=== PATIENT | male | born 1930 | race Caucasian/White ===

== ENCOUNTER 2017-01-12 08:29 | Day surgery (SDC) | payer OTHER ==
[~2017-01-12] VITALS: Ht 172.7 cm; Wt 85.5 kg
[~2017-01-12 08:29] MED LIST: ACET-66 PO; ALBU2.5V2 NEB; ALLO100T PO; CARV6 PO; CILO2.5OS OD; CITA20TA9 PO; CLONIDINE PATCH TD; DIGO125T PO; DIVA250T25 PO; DOXA2TAB PO; FLUT16H NASAL; FURO40 PO; KDUR20 PO; LATA2.5D2 OU; LEVO50 PO; LISI-661 PO; PSYL1POW PO; SARN225L TP; VITAD50000 PO
[2017-01-12] MEDS ORDERED: RINGERS SOLUTION,LACTATED 500 ML IV ONE ×2 (09:00→10:02)
[2017-01-12] MEDS ORDERED: MOXIFLOXACIN HCL 0.5% 3 ML OPHTHALMIC SOLUTION OD ONE (09:00)
[2017-01-12] MEDS ORDERED: DICLOFENAC SODIUM 0.1% 2.5 ML OPHTHALMIC SOLUTION OD ONE (09:00)
[2017-01-12] MEDS ORDERED: DICLOFENAC SODIUM 0.1% 2.5 ML OPHTHALMIC SOLUTION ONE (10:01)
[2017-01-12] MEDS ORDERED: MOXIFLOXACIN HCL 0.5% 3 ML OPHTHALMIC SOLUTION ONE (10:01)
[2017-01-12] MEDS ORDERED: TROPICAMIDE 1% 2 ML OPHTHALMIC SOLUTION ONE (10:01)
[2017-01-12] MEDS ORDERED: PHENYLEPHRINE HCL 2.5% 2 ML OPHTHALMIC SOLUTION ONE (10:02)
[2017-01-12] MEDS: TROPICAMIDE 1% 2 ML OPHTHALMIC SOLUTION OD SCH ×2 (10:46→10:51)
[2017-01-12] MEDS: PHENYLEPHRINE HCL 2.5% 2 ML OPHTHALMIC SOLUTION OD SCH ×2 (10:46→10:51)
[2017-01-12] MEDS ORDERED: MIDAZOLAM HCL 2 MG/2 ML VIAL IVP ONE (12:00)
[2017-01-12] MEDS ORDERED: FentaNYL CITRATE-PF 100 MCG/2 ML VIAL IV ONE (12:00)
[2017-01-12] MEDS ORDERED: LIDOCAINE HCL/PF 1% 2 ML VIAL IM ONE (16:25)
[2017-01-12] MEDS ORDERED: TETRACAINE HCL/PF 0.5% 4 ML OPHTHALMIC SOLUTION OS ONE (16:25)
[2017-01-12] MEDS ORDERED: POVIDONE-IODINE 10% 15 ML SOLUTION UD TP ONE (16:25)
[2017-01-12] MEDS ORDERED: DEXAMETHASONE SOD PHOS 4 MG/ML VIAL IVP ONE ×2 (16:25)
[2017-01-12] MEDS ORDERED: HYALURONATE SODIUM 12 MG/ML 0.8 ML SYRINGE IO ONE (16:25)
[2017-01-12] MEDS ORDERED: HYALURONATE SOD/CHONDROITIN SOD 0.5 ML VIAL IO ONE (16:25)
== END 2017-01-12 12:40 | disposition home or self-care (01) ==
LOC: SURGERY 08:29
PROVIDERS: ATTEND Specialist
DX: H25.011 Cortical age-related cataract, right eye (principal); H40.9 Unspecified glaucoma; I10 Essential (primary) hypertension; J44.1 Chronic obstructive pulmonary disease with (acute) exacerbation; I25.10 Atherosclerotic heart disease of native coronary artery without angina pectoris; F32.9 Major depressive disorder, single episode, unspecified; D64.9 Anemia, unspecified; N28.89 Other specified disorders of kidney and ureter; Z79.01 Long term (current) use of anticoagulants; Z72.89 Other problems related to lifestyle; Z98.890 Other specified postprocedural states; Z95.0 Presence of cardiac pacemaker; Z87.01 Personal history of pneumonia (recurrent); Z86.19 Personal history of other infectious and parasitic diseases
CPT/HCPCS: 66984; 93005; C1780; J1100; J2250; J3010; J3490 ×2; J7120